=== PATIENT | female | born 1995 ===

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

== ENCOUNTER 2017-12-03 01:26 | Emergency (ER) | payer OTHER ==
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
[2017-12-03 03:10] VITALS: BP 113/87
--- NOTE | 2017-12-03 08:19 | RAD ---
INDICATION: Right ankle pain after injury COMPARISON: None. TECHNIQUE: 3 views of the right foot were obtained. FINDINGS: There is a minimally displaced fracture oriented horizontally at the base of the right fifth metatarsal. The remaining visualized bones are intact and appropriately aligned. IMPRESSION: AVULSION FRACTURE AT THE BASE OF THE RIGHT FIFTH METATARSAL EXHIBITING A SMALL DEGREE OF LATERAL DISPLACEMENT AND DISTRACTION. R1
== END 2017-12-03 03:10 | disposition home or self-care (01) ==
LOC: ED 01:26
DX: M79.671 Pain in right foot (principal); S92.351A Displaced fracture of fifth metatarsal bone, right foot, initial encounter for closed fracture; W19.XXXA Unspecified fall, initial encounter; Y92.9 Unspecified place or not applicable
CPT/HCPCS: 99282